=== PATIENT | male | born 1970 | race Caucasian/White ===

== ENCOUNTER 2020-01-01 10:46 | Emergency (ER) | payer BC | END 2020-01-01 12:42 | disposition home or self-care (01) | LOC: ERS 10:46 | DX: S10.93XA Contusion of unspecified part of neck, initial encounter (principal); I10 Essential (primary) hypertension; V89.2XXA Person injured in unspecified motor-vehicle accident, traffic, initial encounter | CPT/HCPCS: 99283 ==

== ENCOUNTER 2020-12-13 14:38 | Outpatient (CLI) | payer BC | END 2020-12-13 14:39 | disposition home or self-care (01) | LOC: SCSRAD 14:38 | PROVIDERS: ATTEND Family Medicine | DX: M79.18 Myalgia, other site (principal); M51.37 Other intervertebral disc degeneration, lumbosacral region; M43.17 Spondylolisthesis, lumbosacral region | CPT/HCPCS: 72100 ==

== ENCOUNTER 2022-09-25 07:58 | Outpatient (CLI) | payer BC | END 2022-09-25 07:59 | disposition home or self-care (01) | LOC: TBSIIMAG 07:58 | PROVIDERS: ATTEND Surgery | DX: M43.16 Spondylolisthesis, lumbar region (principal); M43.17 Spondylolisthesis, lumbosacral region; M48.07 Spinal stenosis, lumbosacral region; M51.36 Other intervertebral disc degeneration, lumbar region | CPT/HCPCS: 72110; 72148 ==

== ENCOUNTER 2023-01-11 09:37 | Outpatient (CLI) | payer BC | END 2023-01-11 09:38 | disposition home or self-care (01) | LOC: SCSRAD 09:37 | PROVIDERS: ATTEND Family Medicine | DX: M25.562 Pain in left knee (principal) | CPT/HCPCS: 73565 ==